=== PATIENT | female | born 1955 | race African-American/Black ===

== ENCOUNTER 2017-06-24 07:17 | Emergency (ER) | payer OTHER ==
[~2017-06-24] VITALS: Ht 167.6 cm; Wt 90.0 kg
[2017-06-24] MEDS ORDERED: SODIUM CHLORIDE 0.9% 1,000 ML IV ONE (07:40)
[2017-06-24 07:59] LABS: HEMATOCRIT. 31.3 % (36.0-48.0); HEMOGLOBIN. 10.2 g/dL (12.0-16.0); MEAN CORPUSCULAR HEMOGLOBIN 25.1 pg (28.0-32.0); MEAN CORPUSCULAR VOLUME 77.4 fL (81.0-99.0); MEAN PLATELET VOLUME 8.9 fl (7.4-10.4); PLATELET 216 x1000/uL (130-400); RED BLOOD CELL COUNT 4.05 mill/uL (4.2-5.4); RED CELL DISTRIBUTION WIDTH 16.6 % (11.6-14.6)
[2017-06-24 08:05] LABS: INR 1.2
[2017-06-24 08:09] LABS: CARBON DIOXIDE 27 mEq/L (21-32); CHLORIDE 104 mEq/L (98-107)
[2017-06-24 09:08] LABS: PLATELET ESTIMATE NORMAL
[2017-06-24] MEDS ORDERED: POTASSIUM CHLORIDE 20MEQ TABLET SR PO ONE (09:30)
[2017-06-24 09:51] VITALS: BP 127/64
== END 2017-06-24 09:59 | disposition home or self-care (01) ==
LOC: ER 07:32
DX: R55 Syncope and collapse (principal); E87.6 Hypokalemia; F17.200 Nicotine dependence, unspecified, uncomplicated; Z88.0 Allergy status to penicillin
CPT/HCPCS: 36415; 80053; 85025; 85610; 93005; 96360; 96361; 99285; J7030; Z7610

== ENCOUNTER 2018-08-25 09:08 | Emergency (ER) | payer SELFPAY ==
[~2018-08-25] VITALS: Ht 157.5 cm; Wt 79.5 kg
[2018-08-25] MEDS ORDERED: MECLIZINE 25MG TABLET PO ONE (09:45)
[2018-08-25 09:59] LABS: BASOPHILS % 0.9 % (0.0-2.0); EOSINOPHILS % 0.7 % (0.0-5.0); HEMATOCRIT. 40.5 % (36.0-48.0); HEMOGLOBIN. 13.3 g/dL (12.0-16.0); LYMPHOCYTES % 18.6 % (20.0-50.0); MEAN CORPUSCULAR HEMOGLOBIN 26.6 pg (28.0-32.0); MEAN CORPUSCULAR VOLUME 81.1 fL (81.0-99.0); MEAN PLATELET VOLUME 9.4 fl (7.4-10.4); MONOCYTES % 5.4 % (2.0-8.0); NEUTROPHILS % 74.4 % (40.0-76.0); PLATELET 244 x1000/uL (130-400); RED BLOOD CELL COUNT 4.99 mill/uL (4.2-5.4)
[2018-08-25 10:09] LABS: CHLORIDE 103 mEq/L (98-107)
[2018-08-25 10:13] LABS: ETHANOL BLOOD < 10 mg/dL
[2018-08-25 12:18] LABS: CLARITY URINE CLEAR (CLEAR); COLOR URINE YELLOW (YELLOW); KETONES URINE NEGATIVE (NEGATIVE); LEUKOCYTE ESTERASE URINE NEGATIVE (NEGATIVE); NITRITE URINE NEGATIVE (NEGATIVE); OCCULT BLOOD URINE NEGATIVE (NEGATIVE); PH URINE 5.5 (4.5-8.0); PROTEIN URINE NEGATIVE (NEGATIVE); SPECIFIC GRAVITY URINE 1.006 (1.005-1.030); UROBILINOGEN URINE 0.2 E.U./dL (0.2-1.0)
[2018-08-25 12:34] LABS: *AMPHETAMINES SCREEN URINE NEGATIVE (NEGATIVE)
[2018-08-25 12:35] LABS: *BARBITURATES SCREEN URINE NEGATIVE (NEGATIVE); *BENZODIAZEPINES SCREEN URINE NEGATIVE (NEGATIVE); *COCAINE SCREEN URINE NEGATIVE (NEGATIVE); CANNABINOID URINE SCREEN NEGATIVE (NEGATIVE); METHADONE URINE SCREEN NEGATIVE (NEGATIVE); OPIATES URINE SCREEN NEGATIVE (NEGATIVE); PHENCYCLIDINE URINE SCREEN NEGATIVE (NEGATIVE)
[2018-08-25 13:58] VITALS: BP 118/69
== END 2018-08-25 14:01 | disposition home or self-care (01) ==
LOC: ER 09:08
DX: H81.393 Other peripheral vertigo, bilateral (principal); L73.8 Other specified follicular disorders; F17.200 Nicotine dependence, unspecified, uncomplicated; Z88.0 Allergy status to penicillin
CPT/HCPCS: 36415; 70551; 80053; 80305; 81003; 85025; 99284; G0482; J8597

== ENCOUNTER 2018-08-31 11:34 | Emergency (ER) | payer SELFPAY ==
[~2018-08-31] VITALS: Ht 157.5 cm; Wt 77.0 kg
[2018-08-31 12:07] VITALS: BP 126/85
== END 2018-08-31 16:46 | disposition left against medical advice (07) ==
LOC: ER 11:34
DX: R10.9 Unspecified abdominal pain (principal); Z53.21 Procedure and treatment not carried out due to patient leaving prior to being seen by health care provider

== ENCOUNTER 2022-08-11 18:40 | Emergency (ER) | payer SELFPAY ==
[~2022-08-11] VITALS: Ht 170.2 cm; Wt 90.0 kg
[2022-08-11 21:59] LABS: BASOPHILS % 0.5 % (0.0-2.0); EOSINOPHILS % 0.6 % (0.0-5.0); HEMATOCRIT. 33.8 % (36.0-48.0); HEMOGLOBIN. 11.1 g/dL (12.0-16.0); LYMPHOCYTES % 12.9 % (20.0-50.0); MEAN CORPUSCULAR VOLUME 78.7 fL (81.0-99.0); MEAN PLATELET VOLUME 8.7 fl (7.4-10.4); MONOCYTES % 6.6 % (2.0-8.0); NEUTROPHILS % 79.4 % (40.0-76.0); PLATELET 266 x1000/uL (130-400); RED BLOOD CELL COUNT 4.29 mill/uL (4.2-5.4)
[2022-08-11 22:05] LABS: CHLORIDE 105 mEq/L (98-107)
[2022-08-11] MEDS ORDERED: MAGN296S70 MT (23:32)
[2022-08-12 00:20] VITALS: BP 138/84
== END 2022-08-12 00:22 | disposition home or self-care (01) ==
LOC: ER 18:40
DX: K59.00 Constipation, unspecified (principal); R03.0 Elevated blood-pressure reading, without diagnosis of hypertension; I49.3 Ventricular premature depolarization; Z88.0 Allergy status to penicillin
CPT/HCPCS: 36415; 80053; 84484; 85025; 93005; 99284

== ENCOUNTER 2023-07-12 08:16 | Emergency (ER) | payer OTHER ==
[~2023-07-12] VITALS: Ht 165.1 cm; Wt 100.0 kg
[~2023-07-12 08:16] MED LIST: MAGN296S70 MT
[2023-07-12 08:28] VITALS: TEMP 98.9; O2SAT 98
[2023-07-12 09:26] LABS: BASOPHILS % 0.9 % (0.0-2.0); DIFFERENTIAL COMMENT 0; EOSINOPHILS % 1.5 % (0.0-5.0); HEMATOCRIT. 39.5 % (36.0-48.0); HEMOGLOBIN. 13.1 g/dL (12.0-16.0); LYMPHOCYTES % 17.7 % (20.0-50.0); MEAN CORPUSCULAR HEMOGLOBIN 26.2 pg (28.0-32.0); MEAN CORPUSCULAR HGB CONC 33.3 g/dL (31.0-37.0); MEAN CORPUSCULAR VOLUME 78.6 fL (81.0-99.0); MEAN PLATELET VOLUME 8.7 fl (7.4-10.4); MONOCYTES % 5.2 % (2.0-8.0); NEUTROPHILS % 74.7 % (40.0-76.0); PLATELET 201 x1000/uL (130-400); RED BLOOD CELL COUNT 5.02 mill/uL (4.2-5.4); RED CELL DISTRIBUTION WIDTH 17.1 % (11.6-14.6)
[2023-07-12 09:38] LABS: CHLORIDE 110 mEq/L (98-107); INDEX HEMOLYSI 1 (1-3); INDEX ICTERIC 1 (1-4); INDEX LIPEMIC 1 (1-3); POTASSIUM 3.7 mEq/L (3.5-5.1); SODIUM 141 mEq/L (136-145)
[2023-07-12 09:40] LABS: CALCIUM 8.2 mg/dL (8.5-10.1)
[2023-07-12 09:47] LABS: ALANINE AMINOTRANSFERASE 18 IU/L (13-61); ALBUMIN 2.8 g/dL (3.4-5.0); ASPARTATE AMINOTRANSFERASE 17 IU/L (15-37); BILIRUBIN TOTAL 0.2 mg/dL (0.1-1.0); CARBON DIOXIDE 26 mEq/L (21-32); CREATININE 0.6 mg/dL (0.6-1.3); GLUCOSE 107 mg/dL (70-105); TROPONIN I HIGH SENSITIVITY 6 ng/L (<54); UREA NITROGEN BLOOD 13 mg/dL (7-21)
[2023-07-12] MEDS ORDERED: MECL-299 MT (11:02)
[2023-07-12 11:27] VITALS: BP 158/94; PULSE 86; RESP 20
== END 2023-07-12 11:28 | disposition home or self-care (01) ==
LOC: ER 08:16
DX: R42 Dizziness and giddiness (principal); Z88.0 Allergy status to penicillin; Z88.8 Allergy status to other drugs, medicaments and biological substances
CPT/HCPCS: 36415; 71045; 80053; 82962; 84484; 85025; 93005; 99285

== ENCOUNTER 2024-03-16 02:50 | Emergency (ER) | payer OTHER ==
[~2024-03-16] VITALS: Ht 157.5 cm; Wt 86.0 kg
[~2024-03-16 02:50] MED LIST changes: +MECL-299 MT
[2024-03-16 03:01] VITALS: O2SAT 99
[2024-03-16] MEDS ORDERED: ISOP30DR11 EACH EAR (07:52)
[2024-03-16] MEDS ORDERED: TOPUD MT (07:52)
[2024-03-16] MEDS ORDERED: CLAR10 MT (07:52)
[2024-03-16] MEDS ORDERED: CIPR-263 MT (07:52)
[2024-03-16] MEDS ORDERED: GUAI180L5 MT (07:52)
[2024-03-16 08:17] VITALS: BP 147/88; PULSE 100; RESP 18; TEMP 98.8
== END 2024-03-16 08:18 | disposition home or self-care (01) ==
LOC: ER 02:50
DX: J20.9 Acute bronchitis, unspecified (principal); J30.9 Allergic rhinitis, unspecified; H61.21 Impacted cerumen, right ear; R05.9 Cough, unspecified; R06.02 Shortness of breath; R09.81 Nasal congestion; Z20.822 Contact with and (suspected) exposure to COVID-19
CPT/HCPCS: 71045; 87426; 99284